=== PATIENT | female | born 1960 | race Caucasian/White ===

== ENCOUNTER 2022-07-17 07:48 | Outpatient (CLI) | payer OTHER, SELFPAY ==
--- NOTE | ~2022-07-17 | CT_ITS ---
EXAMINATION:CT lung screening DATE: 07/17/2022 08:08 INDICATION: Tobacco dependence. Smoker who quit 6 years ago with 38 pack year history. TECHNIQUE: Computed tomography (CT) of the chest was performed without intravenous contrast. Automate d exposure control and iterative reconstruction technique were employed. The dose-length product (DLP ) was 89.70 mGy-cm. COMPARISON: None. FINDINGS: There is mild scarring at the lung apices. There is moderate emphysema. There is a 12 mm no dule in left lower lobe. A calcified left lung nodule and calcified left hilar lymph node are consist ent with old granulomatous disease. No pleural effusion. The heart size is normal. No pericardial eff usion. Calcifications in the spleen are consistent with old granulomatous disease. There is mild thor acic spondylosis. There are changes of anterior fusion procedure in cervical spine. IMPRESSION: 1. Lung RADS category 4A: Suspicious. PET/CT or 3 month low-dose noncontrast chest CT is recommended. Reviewed, dictated and finalized at location A. IMPRESSION: 1. Lung RADS category 4A: Suspicious. PET/CT or 3 month low-dose noncontrast ch est CT is recommended.
== END 2022-07-17 07:49 | disposition home or self-care (01) ==
LOC: CHSIMG 07:52
PROVIDERS: PCP Family Medicine; Visit Provider Registered Nurse
DX: Z12.2 Encounter for screening for malignant neoplasm of respiratory organs (principal); Z87.891 Personal history of nicotine dependence; R91.8 Other nonspecific abnormal finding of lung field
CPT/HCPCS: 71271

== ENCOUNTER 2023-01-13 07:31 | Outpatient (CLI) | payer OTHER, SELFPAY ==
--- NOTE | ~2023-01-13 | CT_ITS ---
EXAMINATION:CT diagnostic chest wo con DATE: 01/13/2023 07:55 INDICATION: Lung nodule. TECHNIQUE: Computed tomography (CT) of the chest was performed without intravenous contrast. Automate d exposure control and iterative reconstruction technique were employed. The dose-length product (DLP ) was 188.86 mGy-cm. COMPARISON: Chest CT 07/17/2022 FINDINGS: There is mild scarring at the lung apices. There is moderate emphysema. There is a 12 mm no dule in left lower lobe. Calcified left lung nodules and calcified left hilar lymph nodes are consist ent with old granulomatous disease. No pleural effusion. The heart size is normal. There are coronary artery calcifications. No pericardial effusion. Aortic atherosclerosis is noted. Calcifications in t he spleen are consistent with old granulomatous disease. There is mild thoracic spondylosis. There ar e changes of anterior fusion procedure in cervical spine. IMPRESSION: 1. 12 mm pulmonary nodule, stable for 6 months, probably benign. Noncontrast low-dose chest CT is rec ommended in 6 months. Reviewed, dictated and finalized at location A. IMPRESSION: 1. 12 mm pulmonary nodule, stable for 6 months, probably benign. Noncontrast lo w-dose chest CT is recommended in 6 months.
== END 2023-01-13 07:32 | disposition home or self-care (01) ==
LOC: CHSIMG 07:33
PROVIDERS: PCP Family Medicine; Visit Provider Registered Nurse
DX: R91.1 Solitary pulmonary nodule (principal)
CPT/HCPCS: 71250

== ENCOUNTER 2023-03-11 08:15 | Emergency (ER) | payer OTHER, SELFPAY ==
[2023-03-11 08:15] VITALS: BP 151/84; PULSE 78; RESP 18; TEMP 36.7; O2SAT 96
--- NOTE | 2023-03-11 08:26 | ED.HEATRA ---
HPI - Head Injury General Chief complaint: Wound/Laceration Stated complaint: FACIAL INJURY Time Seen by Provider: 03/11/23 08:25 Source: patient Mode of arrival: ambulatory Limitations: no limitations History of Present Illness HPI Narrative: 62-year-old female History of diskectomy presents to the ER with -- abrasion over the nose with 2 cm superficial ulcer. 2-3 drops of blood from nostril. patient is not on anticoagulation. -- tenderness over upper lip and mandible after a ramp fell on her face. No loss of consciousness. no neck pain no other injuries noted. MD Complaint: other ( Facial trauma) Onset (ago): hour(s) ( 1-1/2 hours ago) Place: home Loss of Consciousness: no Location of injury: face Severity: mild Radiation: none Other Injuries: none Associated symptoms: denies other symptoms Related Data Home Medications Medication Instructions Recorded Confirmed No Home Medications 03/11/23 03/11/23 Allergies Allergy/AdvReac Type Severity Reaction Status Date / Time epinephrine Allergy Rash Verified 03/11/23 08:25 Review of Systems Review of Systems: All systems reviewed & are unremarkable except as noted in HPI and below Constitutional: Constitutional: Reports as per HPI and Reports no additional constitutional complaints Eyes: Eyes: Reports as per HPI and Reports no additional eye complaints ENT: Reports system reviewed and no additional complaints, except as documented and Reports as per HPI Comments: abrasions over the nose Cardiovascular: Cardiovascular: Reports as per HPI and Reports no additional cardiovascular complaints Respiratory: Respiratory: Reports as per HPI and Reports no additional respiratory complaints Gastrointestinal: Gastrointestinal: Reports as per HPI and Reports no additional gastrointestinal complaints Genitourinary: Genitourinary: Reports no additional female genitourinary complaints and Reports as per HPI Musculoskeletal: Musculoskeletal: Reports no additional musculoskeletal complaints and Reports as per HPI Integumentary/Breasts: Skin/Breast: Reports system reviewed and no additional complaints, except as docu and Reports as per HPI Comments: nasal abrasion superficial ulcer Neurologic: Reports system reviewed and no additional complaints, except as documented and Reports as per HPI Psychiatric: Psychiatric: Reports no additional psychiatric complaints and Reports as per HPI Endocrine: Endocrine: Reports no additional endocrine complaints and Reports as per HPI Hematologic/Lymphatic: Hematologic/Lymphatic: Reports no additional hematologic/lymphatic complaints and Reports as per HPI Allergic/Immunologic: Allergic/Immunologic: Reports no additional allergic/immunologic complaints and Reports as per HPI [facility] Surgical History Surgical History H/O cervical discectomy H/O tubal ligation Exam Const: General: healthy appearing and no acute distress Nutritional Appearance: well nourished Orientation/consciousness: patient oriented x3 Limitations: no limitations HENMT: Head: normal to inspection Ears: external ears normal Face/Nose/Sinus: Normal external nose present ( abrasion over the nose. 2 cm superficial ulceration. no bony tenderness.) and Epistaxis present ( no blood inside the nostrils) Face and sinus: normal facial exam Mouth: Yes Normal oral and palatal mucosa present Teeth and gingiva: dentition normal (edentulous) Throat: posterior oropharynx normal Eyes: Conjunctivae: conjunctivae normal Pupils: Equal, round and reactive pupils present EOM: EOMs intact bilaterally Direct Ophthalmoscopy: no photophobia Neck: Neck: normal visual inspection, no lymphadenopathy and no meningeal signs Chest: Chest palpation & inspection: normal inspection of the chest Resp: Effort & Inspection: normal respiratory effort Auscultation: clear to auscultation bilaterally Cardio: Rate:
[2023-03-11] MEDS: TETANUS,DIPHTHERIA,AC PERTUSSIS ADULT 0.5 ML (ADACEL) IM (08:46)
[2023-03-11] MEDS: BACITRACIN/POLYMYXIN B OINT 15 GM TUBE 1 APPLIC TOPICAL (09:00)
== END 2023-03-11 09:02 | disposition home or self-care (01) ==
PROVIDERS: Emergency Provider Internal Medicine Critical Care Medicine; PCP Family Medicine
DX: S01.20XA Unspecified open wound of nose, initial encounter (principal); Z23 Encounter for immunization; Z79.01 Long term (current) use of anticoagulants; W19.XXXA Unspecified fall, initial encounter; Y92.009 Unspecified place in unspecified non-institutional (private) residence as the place of occurrence of the external cause
CPT/HCPCS: 90471; 90715; 99282; A9270

== ENCOUNTER 2023-11-09 12:54 | Outpatient (CLI) | payer MEDICARE, OTHER, SELFPAY ==
--- NOTE | ~2023-11-09 | CT_ITS ---
EXAMINATION:CT diagnostic chest wo con DATE: 11/09/2023 13:14 INDICATION: Lung nodule. TECHNIQUE: Computed tomography (CT) of the chest was performed without intravenous contrast. Automate d exposure control and iterative reconstruction technique were employed. The dose-length product (DLP ) was 88.82 mGy-cm. COMPARISON: Chest CT 01/13/2023, 07/17/2022 FINDINGS: There is mild emphysema. There is mild scarring at right lung apex. There is a 12 mm nodule in left lower lobe. A calcified left lung nodule and calcified left hilar lymph nodes are consistent with old edematous disease. No pleural effusion. Calcifications in the spleen are consistent with ol d granulomatous disease. There are changes of anterior fusion procedure in cervical spine. There is m ild thoracic spondylosis. IMPRESSION: 1. 12 mm left lower lobe pulmonary nodule, stable from 07/17/2022, likely benign. Noncontrast low-dose chest CT is recommended in 12 months. Reviewed, dictated and finalized at location E. IMPRESSION: 1. 12 mm left lower lobe pulmonary nodule, stable from 07/17/2022, likely benign . Noncontrast low-dose chest CT is recommended in 12 months.
== END 2023-11-09 12:55 | disposition home or self-care (01) ==
LOC: CHSIMG 12:59
PROVIDERS: PCP Family Medicine; Visit Provider Registered Nurse
DX: R91.1 Solitary pulmonary nodule (principal)
CPT/HCPCS: 71250

== ENCOUNTER 2025-02-22 11:11 | Emergency (ER) | payer MEDICARE, OTHER, SELFPAY ==
[2025-02-22 11:11] VITALS: BP 194/89; PULSE 83; RESP 16; TEMP 36.5; O2SAT 100
--- NOTE | 2025-02-22 11:13 | ED_ITS ---
HPI - Extremity Injury (Lower) General Chief Complaint: Extremity Injury, Lower Stated Complaint: left ankle pain Time Seen by Provider: 02/22/25 11:13 Source: patient Mode of arrival: ambulatory Limitations: no limitations History of Present Illness HPI Narrative: 64 year old female presents to the Emergency Department complaining of left lower leg injury. Patient states she was walking her large dog 3 weeks ago and his tail struck her leg. She has contusion present, but concerned about raised area of contusion. Has been ambulatory without difficulty. No numbness or tingling. MD complaint: leg injury Onset (ago): week(s) (3) Type of Injury: blunt Place: home Context: direct blow Related Data Home Medications ?Medication ?Instructions ?Recorded ?Confirmed ?Last Taken ?Type No Home Medications 03/11/23 02/22/25 U nknown History Allergies Allergy/AdvReac Type Severity Reaction Status Date / Time epinephrine Allergy Rash Verified 02/22/25 11:20 Review of Systems Review of Systems: All systems reviewed & are unremarkable except as noted in HPI and below Constitutional: Constitutional: Reports as per HPI Eyes: Eyes: Reports as per HPI ENT: Reports as per HPI Cardiovascular: Cardiovascular: Reports as per HPI Respiratory: Respiratory: Reports as per HPI Gastrointestinal: Gastrointestinal: Reports as per HPI Genitourinary: Genitourinary: Reports as per HPI Musculoskeletal: Musculoskeletal: Reports no additional musculoskeletal complaints and Reports as per HPI Integumentary/Breasts: Skin/Breast: Reports as per HPI Neurologic: Reports as per HPI, Denies numbness and Denies weakness Psychiatric: Psychiatric: Reports as per HPI Endocrine: Endocrine: Reports as per HPI Hematologic/Lymphatic: Hematologic/Lymphatic: Reports as per HPI Allergic/Immunologic: Allergic/Immunologic: Reports as per HPI [facility] Surgical History Surgical History H/O tubal ligation H/O cervical discectomy Exam Const: General: healthy appearing Nutritional Appearance: well nourished Orientation/consciousness: patient oriented x3 Limitations: no limitations HENMT: Head: normal to inspection Ears: external ears normal Face/Nose/Sinus: Normal external nose present Face and sinus: normal facial exam Eyes: Pupils: Equal, round and reactive pupils present EOM: EOMs intact bilaterally Direct Ophthalmoscopy: no photophobia Neck: Neck: normal visual inspection Chest: Chest palpation & inspection: normal inspection of the chest Resp: Effort & Inspection: normal respiratory effort Cardio: Rate: regular rate Other: peripheral pulses intact GI: Inspection: non-distended Skin: Other: old contusion to anteromedial aspect left lower leg with small hematoma palpable centrally Neuro: General: patient oriented x3 Gait exam (Neuro): Normal gait present Other: grossly intact Extrem: Other: contusion and hematoma to anteromedial aspect distal left lower leg, distal NV intact Psych: Mental Status: mental status grossly normal Course Course Emergency Course: 64 y/o female presents to the ED with contusion to distal left lower leg. Patient states was struck on leg by her large dogs tail 3 weeks ago. Has been ambulatory without difficulty. Concerned about mildly raised area central contusion. No numbness or tingling. PE: old contusion to anteromedial aspect left lower leg with small hematoma palpable. Distal NV intact. Neg Hamida's. *discussed with patient. Patient does not wish to have x-ray of leg. Instructions Vital Signs Vital signs: Vital Signs Temperature 36.5 C 02/22/25 11:11 Pulse Rate 83 02/22/25 11:11 Respiratory Rate 16 02/22/25 11:11 Blood Pressure 194/89 H 02/22/25 11:11 Pulse Oximetry 100 02/22/25 11:11 Oxygen Delivery Room Air 02/22/25 11:11 Temperature 36.5 C 02/22/25 11:11 Pulse Rate 83 02/22/25 11:11 Respiratory Rate 16 02/22/25 11:11 Blood Pressure 194/89 H 02/22/25 11:11 Pulse Oximetry 100 02/22/25 11:11 Oxygen Delivery Room Air 02/22/25 11:11 Discharge Plan Discharge Clinical Impression: Contusion of left lower leg, Hematoma of left lower leg Patient Disposition: Home Condition: Stable Instructions: Contusion in Adults (ED), Hematoma (ED) Additional Instructions: Elevate for swelling Tylenol, Ibuprofen and Aleve as needed Follow up Primary Care Provider Return as needed Patient Language: Indonesian Prescriptions: No Action No Home Medications Follow-up/Referrals: Patric Jacobs DO [Primary Care Provider, [facility]] Time of Disposition: 11:16
== END 2025-02-22 11:26 | disposition home or self-care (01) ==
LOC: CHSED 11:21
PROVIDERS: Emergency Provider Emergency Medicine; PCP Family Medicine
DX: S80.12XA Contusion of left lower leg, initial encounter (principal); W54.1XXA Struck by dog, initial encounter
CPT/HCPCS: 99282

== ENCOUNTER 2025-03-03 11:03 | Outpatient (CLI) | payer MEDICARE, SELFPAY ==
[2025-03-03 11:20] LABS: Hematocrit 42.0 % (35.0-42.0); Hemoglobin 13.5 g/dL (11.7-13.8); Immature Granulocyte Percent A 0.6 % (0.0-0.0); Lymphocytes Absolute Auto 2.53 K/mm3 (1.10-4.50); Mean Corpuscular HGB Conc 32.1 g/dL (32-36); Mean Corpuscular Hemoglobin 29.3 pg (27.0-31.0); Mean Corpuscular Volume 91.1 fL (78.0-102.0); Nucleated Red Blood Cells Absolute Auto 0.00 K/mm3 (0.00-0.00); Nucleated Red Blood Cells Perc 0.0 % (0-0.0); Platelet Count Result 382 K/mm3 (150-420); Red Blood Count 4.61 M/mm3 (4.20-5.40); White Blood Count 7.2 K/mm3 (4.8-10.8)
--- OUTSIDE RECORDS SUMMARY | 2025-03-03 11:27 | XMS_ITS | Clinical Summary ---
Author Organization [facility] Address [address] [place] [id number] Care Team Providers Care Material Engineer Name Role Phone Isma Richey MD Primary Care Provider [phone] Allergies Active Allergy Reactions Criticality Noted Date Comments Nsaids Unknown 01/20/2020 Sulfacetamide Unknown 01/20/2020 Medications No known medications Social History Tobacco Use Types Packs/Day Years Used Date Smoking Tobacco: Former Cigarettes Smokeless Tobacco: Never Alcohol Use Standard Drinks/Week Comments Not Currently 0 (1 standard drink = 0.6 oz pur e alcohol) Comments Unknown Sex and Gender Information Value Date Recorded Sex Assigned at Not on file 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 Gender Identity Not on file Sexual Orientation Not on file Last Filed Vital Signs Vital Sign Reading Time Taken Comments Blood Pressure 154/82 01/20/2020 8:19 AM CDT Pulse 83 01/20/2020 8:19 AM CDT Temperature 36.7 C (98.1 F) 01/20/2020 8:19 AM CDT Respiratory Rate 18 01/20/2020 8:19 AM CDT Oxygen Saturation 96% 01/20/2020 8:19 AM CDT Inhaled Oxygen Concentration - - Weight 74.8 kg (165 lb) 01/20/2020 8:19 AM CDT Height 167.6 cm (5' 6) 01/20/2020 8:19 AM CDT Body Mass Index 26.63 01/20/2020 8:19 AM CDT Plan of Treatment Health Maintenance Due Date Last Done Comments Colorectal Cancer Screening Colonoscopy (10 Years) 1958 Hepatitis C 1976 Mammogram Screening 1998 Pneumococcal Vaccine: 50+ Years (1 of 1 - PCV) 2008 Zoster Vaccines (1 of 2) 2008 Dexa Scan (General) 10/16/2023 DTaP, Tdap and Td Vaccines ( 2 - Td or Tdap) 11/01/2024 11/01/2014 COVID-19 Vaccine (4 - 2024-2 6 season) 2025 02/10/2021, 06/27/2020, 06/06/2020 Influenza Adult (#1) 2025 RSV Immunization or 60+ Years (1 - 1-dose 75+ series) 2033 Hepatitis A Vaccines Aged Out No long er eligible based on patient's age to complete this topic Meningococcal B Vaccine Aged Out No l onger eligible based on patient's age to complete this topic Meningococcal Vaccine Aged Out No gianni desmond eligible based on patient's age to complete this topic RSV Immunizations Under 20 Months Aged Out No longer eligible b ased on patient's age to complete this topic Insurance [employer] Care Teams Material Engineer Relationship Specialty Start Date End Date Isma Richey MD [address] [place] [phone] PCP - General FAMILY PRACTICE 01/20/20
[2025-03-03 12:00] LABS: Alanine Aminotransferase 18 U/L (6-35); Albumin Level 4.8 g/dL (3.5-5.1); Alkaline Phosphatase 137 U/L (38-126); Anion Gap 11 mmol/L (4-12); Aspartate Amino Transferase 28 U/L (14-36); Bilirubin,Total 0.6 mg/dL (0.2-1.3); Blood Urea Nitrogen 14 mg/dL (7-17); Calcium 9.5 mg/dL (8.4-10.2); Carbon Dioxide 27 mmol/L (22-30); Chloride 103 mmol/L (98-107); Cholesterol 275 mg/dL (0-200); Estimated Glomerular Filt Rate > 60; Glucose 97 mg/dL (65-110); HDL Direct 77 mg/dL; Osmolality Calculated 292 mOsm/kg (285-295); Potassium 4.6 mmol/L (3.4-5.0); Sodium 141 mmol/L (137-145); Total Protein 7.6 g/dL (6.3-8.2); Triglycerides 154 mg/dL (<150)
[2025-03-03 12:42] LABS: Thyroid Stimulating Hormone Reflex 1.180 uIU/mL (0.465-4.68)
[2025-03-06 10:34] LABS: Hepatitis B Surface Antigen Negative; Hepatitis B Surface Antigen Negative (Negative)
[2025-03-06 10:40] LABS: HAV RESULT Negative (Negative); Hepatitis A Antibody IgM Negative; Hepatitis B Core IgM Result Negative (Negative)
== END 2025-03-03 11:04 | disposition home or self-care (01) ==
LOC: CHSLAB 11:05
PROVIDERS: PCP Family Medicine; Visit Provider Family Medicine
DX: E03.9 Hypothyroidism, unspecified (principal); R63.5 Abnormal weight gain; R74.01 Elevation of levels of liver transaminase levels; Z13.6 Encounter for screening for cardiovascular disorders
CPT/HCPCS: 36415; 80053; 80061; 80074; 84443; 85025

== ENCOUNTER 2025-03-09 12:18 | Outpatient (CLI) | payer MEDICARE, OTHER, SELFPAY ==
--- NOTE | ~2025-03-09 | DEXA_ITS ---
Bone Density Report Name: JANEL MANZANARES Age: 64 Sex: Female Ethnicity: White Date of : 1960 Indication: postmenopausal; screening for osteoporosis; Referring Provider: Patric Jacobs Study: Bone densitometry was performed. Exam Date: March 09, 2025 Accession number: [id number] Bone Density: Region BMD T-score Z-score Classification AP Spine(L1-L4) 0.980 -0.6 1.2 Normal Femoral Neck (Left) 0.685 -1.5 0.1 Osteopenia Total Hip (Left) 0.891 -0.4 0.9 Normal Femoral Neck (Right) 0.691 -1.4 0.2 Osteopenia Total Hip (Right) 0.904 -0.3 1.0 Normal Femoral Neck Mean 0.688 -1.4 0.1 Osteopenia Total Hip Mean 0.897 -0.4 0.9 Normal World Health Organization criteria for BMD impression classify patients as: Normal (T-score at or above -1.0), Osteopenia (T-score between -1.0 and -2.5), or Osteoporosis (T-score at or below -2.5). 10-year Fracture Risk(1): Major Osteoporotic Fracture 8.8% Hip Fracture 0.9% Reported Risk Factors: [place] (), Neck BMD=0.685, BMI=28.7 (1) FRAX(R) Version 3.08. Fracture probability calculated for an untreated patient. Fracture probability may be lower if the patient has received treatment. Clinical Information Provided by Patient: Patient maximum height was 66 Menopause Age: 45 Drinks caffeinated beverages Onset of menses at age 13 Number of children 2 Impression: The patient has low bone mass, based on the Left Femoral Neck T-score. Discussion: BONE DENSITY IS LOW AT ONE OR MORE SKELETAL SITES. This patient's lowest T-score is low at one or more skeletal sites. It meets the World Health Organization's (WHO) criteria for ?low bone mass? (T-score between -1.0 and -2.5). The patient's 10-year risk of fracture as calculated by FRAX is less than the threshold where pharmacological therapy is recommended by the National Osteoporosis Foundation (NOF). However, all treatment decisions require clinical judgment and consideration of individual patient factors, including patient preferences, comorbidities, previous drug use, risk factors not captured in the FRAX model (e.g., frailty, falls, vitamin D deficiency, increased bone turnover, interval significant decline in bone density) and possible under or overestimation of fracture risk by FRAX. The patient should follow a healthful lifestyle (good nutrition with adequate calcium and vitamin D, and appropriate weight-bearing exercise). Follow-Up: Consider repeating this study in 2 to 3 years to reassess this patient's status, or sooner if there is some new clinical indication. Reported by: PAOLA on 03/09/2025 12:47:00 PM. Reviewed, dictated and finalized at location A.
--- NOTE | ~2025-03-09 | CT_ITS ---
EXAMINATION: CT lung screening DATE: 03/09/2025 12:35 INDICATION: Personal history of nicotine dependence TECHNIQUE: Computed tomography (CT) of the chest was performed without intravenous contrast. The dose-length product was 75.90 mGy-cm. Automated exposure control and iterative reconstruction technique were employed. COMPARISON: Comparison to multiple prior studies sequentially, with oldest reviewed study dated 07/17/2022. FINDINGS: There is emphysema. There are gland unremarkable. No thoracic lymphadenopathy. Heart size normal. No significant pleural or pericardial effusion. No endobronchial lesions. No pneumothorax. No focal airspace consolidation. Minimal increased size of left lower lobe nodule measuring 13 mm compared with 12 mm on 11/09/2023 and 11 mm on 07/17/2022. No pneumothorax. Mild thoracic spondylosis. Fusion changes are present within the lower cervical spine. There is atherosclerosis of the aorta. IMPRESSION: 1. Growing left lower lobe nodule measuring 13 mm, very suspicious, Lung Rads category 4B. Recommend pet/CT scan or CT-guided biopsy. Reviewed, dictated and finalized at location O. GER INVENTORY CONTROL IMPRESSION: 1. Growing left lower lobe nodule measuring 13 mm, very suspicious, Lung Rads c ategory 4B. Recommend pet/CT scan or CT-guided biopsy.
--- OUTSIDE RECORDS SUMMARY | 2025-03-09 19:30 | XMS_ITS | Clinical Summary ---
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
== END 2025-03-09 12:19 | disposition home or self-care (01) ==
LOC: CHSIMG 12:19
PROVIDERS: PCP Family Medicine; Visit Provider Family Medicine
DX: R91.1 Solitary pulmonary nodule (principal); M81.0 Age-related osteoporosis without current pathological fracture; Z78.0 Asymptomatic menopausal state; Z87.891 Personal history of nicotine dependence
CPT/HCPCS: 71271; 77080

== ENCOUNTER 2025-03-15 10:21 | Outpatient (CLI) | payer SELFPAY ==
--- OUTSIDE RECORDS SUMMARY | 2025-03-15 11:42 | XMS_ITS | Clinical Summary ---
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
--- NOTE | 2025-03-15 12:13 | PCDIET ---
Patient appears cooperative and open to changes. Handouts and web sites given for references for increased education for better self management and greater success.
== END 2025-03-15 10:22 | disposition home or self-care (01) ==
PROVIDERS: PCP Family Medicine; Visit Provider Family Medicine
DX: R63.5 Abnormal weight gain (principal)
CPT/HCPCS: 99199